=== PATIENT | female | born 1990 | race Caucasian/White ===

== ENCOUNTER 2024-01-09 03:13 | Inpatient (IN) ==
[2024-01-09] MEDS ORDERED: CALCIUM CARBONATE 500 MG CHEWABLE TAB PO PRN (03:28)
[2024-01-09] MEDS: LACTATED RINGER'S 1,000 ML IV PRN (03:30)
--- NOTE | 2024-01-09 03:35 | History & Physical Report ---
Date of Service January 09, 2024 Assessment & Plan (1) Encounter for supervision of normal intrauterine in multigravida, antepartum: Plan: Multiparous patient at 39+ weeks in active labor requesting epidural analgesia anticipate vaginal History of Present Illness Primary Care Provider: NO PCP Patient is a 33 yo female [facility] who presents at 39 5/7 weeks in active labor. contractions became every 2 minutes about 1 hour ago. (+) blood show / (-) SPROM. uncomplicated except AMA status and transfer of care at 24 weeks from [place]. GBS- negative testing has been reassuring. Allergies Allergy/AdvReac Type Severity Reaction Status Date / Time Cephalosporins Allergy Intermediate Hives Verified 01/04/24 11:46 Home Medications Medication Instructions Recorded Confirmed Type [id number] PO 09/30/23 01/04/24 History [ Plus] Patient History Medical History Chicken pox Surgical History S/P wisdom tooth extraction Family History (Updated 09/30/23 @ 10:59 by Daria Pearce, AVRIL) Aunt Colorectal cancer Denies family history of Ovarian cancer Breast cancer Social History (Updated 09/30/23 @ 11:03 by Daria Pearce, AVRIL) Smoking Status: Never smoker Do You Dip or Chew Tobacco: No; Hx Alcohol Use: No Hx Substance Use: No marital status: marital status details: Rc De La Paz (33) [phone] Current Living Situation: Spouse and Family Current Living Situation Comment: Lives with and 2 children, 2 dogs current occupational status: employed current occupation: [employer] [place] How many Children do You have: 2 Feels Safe at Home: Yes Review of Systems All systems reviewed & are unremarkable except as noted in HPI & below Physical Exam Constitutional: WD/WN, vitals as above Psychiatric: A+Ox3, euthymic affect Genitourinary: OB Exam Abdomen: + vertex, + estimated weight (7-8 pound s) and + regular contractions (Q2 minutes) Manual OB Exam: + cervical dilation 7 cm, + cervical effacement 100% and + station -1 OB Exam Monitor Tracing: + external FHT monitor used, + external uterine monitor used, + category I and + normal FHT variability Results & Data Vital Signs (Past 12 Hours) Vital Signs Pulse BP 01/09/24 03:25 58 L 109/75 Code Status & VTE Plan VTE Prophylaxis Plan VTE Prophylaxis will be ordered: No Coding Level of Care Code 88831 INT INP/OBS CARE MIN Diagnoses Encounter for supervision of normal intrauterine in multigravida, antepartum Z34.80
[2024-01-09] MEDS: OXYTOCIN 30 UNITS/NSS 30 UNITS/500 ML BAG IV PRN (03:57)
[2024-01-09 03:59] LABS: Hematocrit (blood only) 33.9 % (37.0-47.0); Hemoglobin 11.2 g/dl (12.0-16.0); Mean Corpuscular Volume 84.8 fL (80.0-100.0); Mean Platelet Volume 10.4 fL (9.4-12.4); Platelet Count 223 K/uL (130-400); RDW Coefficient of Variation 13.9 % (11.5-14.5); RDW Standard Deviation 42.6 fL (36.4-46.3); White Blood Count 8.29 K/ul (4.8-10.8)
[2024-01-09] MEDS: fentaNYL citrate PF 100 MCG/2 ML VIAL ONE (03:59)
[2024-01-09] MEDS: SODIUM CHLORIDE 0.9% PF INJ 10 ML VIAL ONE (03:59)
[2024-01-09] MEDS: fentANYL 2 MCG/ML BUPIVacaine 0.125%-NSS 100ML BAG ONE (03:59)
[2024-01-09] MEDS: BUPIVACAINE 0.25% PF 30 ML VIAL ONE (03:59)
[2024-01-09] MEDS: LIDOCAINE 2%/EPINEPHRINE 1:200,000 20 ML PF ONE (03:59)
[2024-01-09] MEDS: ePHEDrine sulfate 50 MG/ML AMP ONE (03:59)
[2024-01-09] MEDS: LIDOCAINE 1% LOCAL 20 ML VIAL INFIL PRN (04:00)
[2024-01-09] MEDS ORDERED: bisacodyL 10 MG SUPP PR PRN (04:15)
[2024-01-09] MEDS ORDERED: HYDROCORTISONE ACETATE 25 MG SUPP PR PRN (04:15)
[2024-01-09] MEDS ORDERED: oxyCODONE/ACETAMINOPHEN 5mg/325mg TAB PO PRN (04:15)
[2024-01-09] MEDS ORDERED: ACETAMINOPHEN 325 MG TAB PO PRN (04:15)
[2024-01-09] MEDS ORDERED: OXYTOCIN 30 UNITS/NSS 30 UNITS/500 ML BAG IV PRN (04:15)
--- NOTE | 2024-01-09 04:20 | Delivery Summary ---
Vaginal Delivery Summary Date of Service January 09, 2024 Vaginal Delivery Summary and 1st Degree LAC Patient is a 33-year-old 4 para 2-0-1-2 female [facility] of [birth year]/11/2024 who presents at 39-5/7 weeks in active labor. Contractions were approximately 2 minutes apart for an hour prior to arriving in labor and delivery. She was 7 cm dilated on admission and went quickly to full dilation with bulging membranes. Membranes were ruptured for clear fluid. She pushed effectively through 1 contraction for delivery of a viable female over intact perineum. After the head was delivered the rest the delivered quickly and without maternal effort. She was placed on the mother's abdomen for further attention and drying. She was vigorous crying and moving all 4 limbs. After 1 minute, the cord was clamped and cut. After cord blood was obtained, the placenta was e xpressed intact with a three-vessel cord. bleeding was controlled with dilute pitocin and fundal massage. A first-degree perineal laceration was repaired in the usual fashion with 3-0 chromic. 1% lidocaine was used to anesthetize the area of the repair. Mother and doing well after delivery. QBL is 381 mls. [facility] Vaginal Delivery Charge Delivery Type Details: and 1st Degree LAC
[2024-01-09] MEDS: DIPHTHER/TETAN/PERTUS Vaccine (Tdap, Adol/Adult) 0.5mL IM ONE (06:30)
[2024-01-09] MEDS: PRENATAL VITAMIN 1 TAB PO SCH (08:17)
[2024-01-09] MEDS: BENZOCAINE 20% SPRY 85 APPLN/85 GM CAN EXT PRN (08:17)
[2024-01-09] MEDS: DOCUSATE SODIUM 100 MG CAP PO SCH (08:17)
[2024-01-09] MEDS: IBUPROFEN 600 MG TAB PO PRN (08:17)
[2024-01-09] MEDS: ACETAMINOPHEN 325 MG TAB PO PRN (21:33)
[2024-01-09 22:53] VITALS: RESP 16
[2024-01-10 06:18] LABS: Hematocrit (blood only) 31.9 % (37.0-47.0); Hemoglobin 10.4 g/dl (12.0-16.0); Mean Corpuscular Hemoglobin 27.8 pg (25.0-34.0); Mean Corpuscular Hgb Conc 32.6 g/dL (32.0-36.0); Mean Corpuscular Volume 85.3 fL (80.0-100.0); Mean Platelet Volume 10.6 fL (9.4-12.4); Platelet Count 189 K/uL (130-400); RDW Coefficient of Variation 14.3 % (11.5-14.5); RDW Standard Deviation 43.5 fL (36.4-46.3); Red Blood Count 3.74 M/uL (4.20-5.40); White Blood Count 6.87 K/ul (4.8-10.8)
--- NOTE | 2024-01-10 07:06 | Obstetrical Progress Note ---
Date of Service January 10, 2024 Assessment & Plan (1) Normal delivery at term: Plan: 2nd PPD foll with 1st deg Lac in No high risk in ANC. No active complain. Vitals: Stable( Pulse : 50s; but she is not symptomatic) Discharge as per protocol. Admission and Anticipated Discharge Date Admission Date: January 09, 2024 Supervising Physician Co-Signing Physician Notes Resident Physician Supervision Note: I interviewed and examined the patient. Discussed with Dr. Rose and agree with findings and plan as documented in the note. Any exceptions or clarifications are listed here: [None] Documented By: Fiona Garcia MD, FACOG Subjective 2nd PPD foll with 1st deg Lac in No high risk in ANC. No active complain. Ambulation+ Gas: Does not noticed, but abdomen not distended. Milagros move: None Diet: Normal Lochia: Mild Breast feeding : No issues Review of Systems Review of Systems: As per HPI Physical Exam Physical Exam: General: Alert and oriented. No acute distress. CV: Regular rate and rhythm. No murmurs. Respiratory: CTA bilaterally. No rhonchi, wheezes, or crackles. No increased work of breathing. Abdomen: Positive bowel sounds. Soft, nontender, non distended. Uterus: Fundus firm and palpable suprapubic Lower extremities: No LE edema. No deep calf pain. Results & Data Vital Signs (Past 12 Hours) Vital Signs Temp Pulse Resp BP Pulse Ox O2 Del Method 01/09/24 22:53 37 C 52 L 16 103/69 96 Room Air Resident Activity Tracking Resident Involvement: Resident Care Provided Care Provided: OB Delivery
[2024-01-10 07:29] VITALS: BP 111/71; PULSE 61; TEMP 97.3; O2SAT 99
[2024-01-10] MEDS ORDERED: bisacodyL 5 MG TABEC PO SCH (20:00)
== END 2024-01-10 09:45 | disposition home or self-care (01) | DRG 807 ==
LOC: OPB 03:13 → 4S1 03:17 → 4E2 07:40